=== PATIENT | male | born 1975 | race Caucasian/White ===

== ENCOUNTER 2020-12-10 08:15 | Outpatient (CLI) | payer OTHER, SELFPAY ==
--- NOTE | ~2020-12-10 | XR_ITS ---
EXAMINATION: XR barium swallow modified EXAM DATE: 12/10/2020 08:55 INDICATION: Dysphagia. TECHNIQUE: Modified barium esophagram was performed by myself to administered fluoroscopy, in conjun ction with speech pathologist who administered barium in varying consistencies as per speech patholog ist documentation. This was recorded on tape. The DAP for this procedure was 1.3 Gycm2. FINDINGS: Oral stage: Adequate function. Pharyngeal phase: Adequate function. Laryngeal penetration: None. Aspiration: None. Laryngeal sensitivity: Present. IMPRESSION: Normal modified esophagram exam. Please refer to speech pathologist findings and specifi c feeding recommendations. Reviewed, dictated and finalized at location A. NG OVEN TENDER IMPRESSION: Normal modified esophagram exam. Please refer to speech pathologis t findings and specific feeding recommendations.
--- NOTE | 2020-12-10 14:18 | STOPEVAL ---
MODIFIED BARIUM SWALLOW EVALUATION: Thank you for referring Roldan Villanueva to [facility].? Attending Provider: MD GLORIA Jensen Outpatient Evaluation ([facility]) Start: 12/10/20 14:08 Freq: Status: Active Protocol: Document 12/10/20 08:30 BECHERERT (Rec: 12/10/20 14:18 BECHERERT [email or web address]) Therapy Assessment Status Assessment Status Assessment Status Evaluation Outpatient Past Medical History Past Medical History Source of Past Medical History Patient Neurological History Hx Neurological Disorders No Significant History Cardiovascular History Hx Cardiac Disorders No Significant History Respiratory History Hx Bronchitis Yes: 2018 Gastrointestinal History Hx Other Gastrointestinal Disorders Yes: recently put on omeprazole Prior Level of Function Prior Swallow Level Prior Intake Method Oral Prior Diet Regular (Level 7 Diet) Prior Liquid Consistency Thin (Level 0 Diet) Pain Assessment Timing of Pain Assessment Timing of Pain Assessment Assessment Self Report Self Report Pain Level 0 Pain Score Pain Score 0: Self Report Modified Barium Swallow Evaluation Recent Swallowing History Reports Dysphagia Yes: feels like food is getting clogged in my throat Onset of Dysphagia 2008 but is worsening now History of Dysphagia No Other Factors Impacting Dysphagia None History of Pneumonia No Reported Difficult Consistencies Solids Intake Method Prior to Swallow Oral Evaluation Diet Prior to Swallow Evaluation Regular, Level 7 Liquid Consistency Prior to Swallow Thin (0) Evaluation Consistency Solid Consistency Method of Presentation Spoon Oral Preparatory Symptoms None Oral Phase Symptoms None Pharyngeal Phase Symptoms None Severity of Vallecular Residue None - 0% No Residue Severity of Pyriform Sinus Residue None - 0% No Residue 8 Point Laryngeal Penetration-Aspiration Material Does Not Enter Airway Scale Cervical/Esophageal Symptoms None Mixed Consistency Method of Presentation Spoon Oral Preparatory Symptoms None Oral Phase Symptoms None Pharyngeal Phase Symptoms None Severity of Vallecular Residue None - 0% No Residue Severity of Pyriform Sinus Residue None - 0% No Residue 8 Point Laryngeal Penetration-Aspiration Material Does Not Enter Airway Scale Cervical/Esophageal Symptoms None Pureed Consistency Method of Presentation Spoon Oral Preparatory Symptoms None Oral Phase Symptoms None Pharyngeal Phase Symptoms None Severity of Vallecular Residue None - 0% No Residue Severity of Pyriform Sin
== END 2020-12-10 08:16 | disposition home or self-care (01) ==
PROVIDERS: PCP Family Medicine; Visit Provider Otolaryngology
DX: R13.10 Dysphagia, unspecified (principal)
CPT/HCPCS: 92611

== ENCOUNTER → 2021-01-05 09:38 | Outpatient (CLI) | payer OTHER, SELFPAY ==
--- NOTE | ~2021-01-05 | CT_ITS ---
EXAMINATION: CT chest high resolution wo mi DATE: 01/05/2021 10:26 INDICATION: Solitary pulmonary nodule TECHNIQUE: Computed tomography (CT) of the chest was performed without intravenous contrast. The dose -length product (DLP) was 358.93 mGy-cm. Automated exposure control and iterative reconstruction tech nique were employed. COMPARISON: Outside hospital CT dated 12/01/2019 FINDINGS: There are multiple small nodules of the right lung. The largest measures 4 mm in the right middle lobe on image 72. There is a 3 mm nodule of the lingula. The lungs are free of acute opacities . There is no pleural effusion or pneumothorax. No pathologically enlarged thoracic lymph nodes are i dentified. The heart size is normal. There is mild thoracic spondylosis. IMPRESSION: 1. Multiple small lung nodules measuring up to 4 mm which likely reflect old granulomatous disease. I f the patient has no risk factors for malignancy, no further follow up is required. If there are ris k factors for malignancy (i.e., history of smoking, asbestos or radiation exposure), consider followu p CT in 12 months. Reviewed, dictated and finalized at location A. R AUTOMATIC STOKER IMPRESSION: 1. Multiple small lung nodules measuring up to 4 mm which likely reflect old gr anulomatous disease. If the patient has no risk factors for malignancy, no furt her follow up is required. If there are risk factors for malignancy (i.e., his tory of smoking, asbestos or radiation exposure), consider followup CT in 12 mo nths.
== END ==
PROVIDERS: PCP Family Medicine; Visit Provider Family Medicine
DX: R91.1 Solitary pulmonary nodule (principal)
CPT/HCPCS: 71250

== ENCOUNTER 2021-10-26 01:56 | Day surgery (SDC) | payer OTHER, SELFPAY ==
[2021-10-21 12:22] VITALS: BMI 30.5
--- NOTE | 2021-10-21 12:34 | PC.NURSE ---
Report to the Outpatient Waiting Room, entrance under the green pavilion located off [facility], at time 0700 on date 10/26/21. OR Time: 0900. - You and your visitor will be asked a series of questions to screen for COVID 19 for your protection. - A mask is required within the hospital. - Only one visitor is allowed at this time. Patient visitors will be guided where to wait when not with patient. Preoperative COVID Testing Requirements: No COVID Test needed if: (proof is required; if not received patient will have Rapid Test prior to entry) - Patient has received COVID Vaccine at least 14 days prior to procedure date or - Patient has positive COVID test result within last 90 days of surgery date. COVID Test needed if above criteria is not met If not COVID vaccinated a COVID test must be conducted within 72 hours of surgery and patient is asked to isolate self from time of testing until procedure. You will go to the [facility] for your COVID testing. The [facility] is located at the corner of [address] [facility]. You will only be called if COVID results are positive and your surgeon may reschedule your elective surgery date. Patients may have clear liquids (water, carbonated beverages, clear teas, apple juice) until 3 hours prior to surgery with a maximum of 20 ounces. - No food from midnight until time of surgery - Infants may have breast milk until 4 hours before surgery, formula 6 hours prior to surgery. - Children will be allowed to drink immediately following surgery. If applicable, please bring a bottle or sippy cup to assist with drinking. Juice, water, soda, and popsicles are readily available. For infants on formula, please bring formula the day of surgery. Pacifiers are allowed. Take the following medications with a SIP of water the morning of surgery: NONE Medications to discontinue per physician: VITAMINS/SUPPLEMENTS Date to take last dose: 10/22/21 Please no make-up, nail georgian, hairspray, perfume, deodorant, or body powder the day of surgery. No jewelry (including any body piercings) or valuables the day of surgery, leave them at home. Please take a shower or bath the night before, or the morning of, surgery with an antibacterial soap. Wear comfortable, loose fitting clothing. Children are encouraged to wear pajamas. HIBICLENS SHOWER - Jewelry must be removed prior to entering the operating room. Rings and piercings that are not removed may be cut off. - The hospital will not accept responsibility for valuables. - Please leave all valuables, including medications, at home the day of surgery. If you are going home after surgery, a licensed compactor driver must drive you home. - NO public transportation without another adult. - We recommend that an adult stay with you for 24 hours following discharge. - We also recommend that you do not drive, make important decision, drink alcoholic beverages, or take any drugs that were not prescribed by your health care provider for at least 24 hours after your discharge time. For Pediatric surgeries, we recommend two adults accompany the child home (only one inside the building at this time). Follow any additional instructions given to you from your surgeon. Telephone instructions given to MONICA LEBLANC and asked if any additional questions and then verbalized understanding. Patient advised to call surgeon office or pre surgery nurse liaison [phone] if any additional questions.
[2021-10-26] VITALS (8 sets, daily range): BP systolic 106–141; BP diastolic 52–83; PULSE 52–67; RESP 14–20; TEMP 36; O2SAT 98–100
[2021-10-26] MEDS: ACETAMINOPHEN 500 MG TABLET 1000 MG PO (07:24)
[2021-10-26] MEDS: KETOROLAC 15 MG/ML VIAL (*BKC) IV PUSH (07:53)
[2021-10-26] MEDS: LACTATED RINGERS 1,000 ML 30 ML IV CONT ×2 (07:59→09:40)
--- NOTE | 2021-10-26 08:12 | WPDANESEPPF ---
Anes - Initial Pre Proc Eval Procedure: Operation Date: 10/26/21 09:00 Proposed Procedures p Open Umbilical Hernia Repair with Possible Mesh - Myles Nelson DO Date/Time: 10/26/21 08:12 Surgeon: Myles Nelson DO Pre Op Diagnosis: umbilical hernia Patient Data Age: 45 Gender: M Height: 1.75 m Weight: 92.3 kg Allergies Allergy/AdvReac Type Severity Reaction Status Date / Time No Known Allergies Allergy Verified 10/26/21 07:20 Home Medications Medication Instructions Recorded Confirmed Type famotidine 20 mg tablet 20 mg PO DAILY 10/19/21 10/26/21 History diphenhydramine HCl [Benadryl] 25 mg PO HS PRN 10/21/21 10/26/21 History multivitamin 1 tablet PO DAILY 10/21/21 10/26/21 History Patient hx anesthesia problems: none Family hx anesthesia problems: none Results Review: All pre-operative results and documents have been reviewed as part of the pre-operative evaluation. 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 Gender identity (if verbalized by the patient): Male Sexual Orientation (if Verbalized by the Patient): Straight or Heterosexual Spiritual care concerns: No Anes - Eval Final PreProcedure Day of Procedure 10/26/21 08:12 Patient weight: overweight Heart: regular rate and rhythm Lungs: clear to auscultation Airway: Mallampati scale class II Neurological: alert and oriented Last oral intake: >/= 8 hours ASA classification: III Emergent: no Anesthetic plan: proceed Anesthesia type and monitoring: general ETT and standard monitoring Results Review: All pre-operative results and documents have been reviewed as part of the pre-operative evaluation. Informed Consent: The patient's anesthetic plan and its attendant risks and benefits were discussed with the patient/family/POA. Questions were solicited and answers provided to the satisfaction of the patient/family/POA.
--- NOTE | 2021-10-26 08:34 | WPDHPUPDATE1 ---
History and Physical Update Update Date/Time: 10/26/21 08:34 History and Physical has been reviewed, including an updated exam of the patient. There are NO changes in the patient's condition. Risks, benefits, and alternatives have been discussed and questions answered. Patient agrees to proceed with procedure.
[2021-10-26] MEDS: ceFAZolin 2 GM/D5W 50 ML 2 GM/50 ML BAG IVPB (08:49)
--- NOTE | 2021-10-26 09:40 | P.OP_ITS ---
Procedure Note - Detailed Date of Procedure 10/26/21 Pre-op Diagnosis umbilical hernia Post-op Diagnosis same Procedure Performed Open umbilicall hernia repair with 4.[address] ventral patch Surgeon Myles Nelson, DO Anesthesia general and local (0.5% bupivacaine with epinephrine) Indications This is a 45-year-old man who presented with an umbilical bulge with pain with activity. He had noticed this over the past couple months. He does a lot of heavy lifting with work and has noticed increased pain with activity. He was found to have a small reducible umbilical hernia on exam. Discussions were made with the patient about treatment options and decision was made to proceed with umbilical hernia repair with possible mesh. Findings Umbilical hernia repair was performed. Patient was found to have a less than 1 cm umbilical hernia containing some preperitoneal fat. A 4.[address] ventral patch was placed just under the hernia defect and the mesh was secured in place using 0 Ethibond notgjm-me-zuyyc sutures along with the fascial closure. No specimens were obtained for pathology. Description of Procedure Procedure as well as risks, benefits, and alternatives were discussed with the patient. Written consent was obtained and placed in chart prior to procedure. Patient was brought back to surgical suite. He was placed supine on operating table. He was then intubated by Anesthesia Department. His abdomen was prepped and draped in sterile fashion using chlorhexidine prep. 0.5% bupivacaine with epinephrine was infiltrated locally around the operative area. A 3 cm curvi linear incision was made just inferior to the umbilicus using a 15 blade scalpel. Electrocautery was used for hemostasis and for dissection down through the subcutaneous fat. Hernia sac was encountered and this was carefully freed up from surrounding subcutaneous fat using electrocautery. The hernia sac was freed up all the way down to the level of the fascia, and then it was transected using electrocautery. The hernia sac was excised and discarded. The umbilical stalk was then lifted off of the fascia with electrocautery. The hernia defect was then measured. This was measuring approximately 6-7 mm. The decision was made to use a 4.[address] ventral patch. The peritoneum was cleared under the fascia circumferentially around the hernia using blunt dissection and electrocautery. Once a wide enough pocket was created for the mesh, the mesh was then placed within this preperitoneal pocket and laid out flat centered on the hernia defect. The mesh appeared to be sitting in proper position. The mesh was secured at the inferior and superior edges using 3-0 Vicryl U-stitches. The fascia was then closed over the mesh and the mesh was incorporated into the fascial closure using 0 Ethibond flotrf-ac-rpeoo sutures. The repair was inspected and appeared secure. 0.5% bupivacaine with epinephrine was infiltrated around the fascia and subcutaneous space. The umbilical stalk was then reapproximated to the fascia using a 3 0 Vicryl simple interrupted suture. The deep dermis was reapproximated using 3 0 Vicryl simple interrupted sutures, and then the skin was approximated using 4 Monocryl running subcuticular suture. Exofin glue was then applied on top. The patient was then awakened from anesthesia, extubated, and transferred to recovery. Implants 4.[address] ventral patch Estimated Blood Loss 5 Pathology none sent Complications No immediate complications Condition stable Disposition same day
[2021-10-26] MEDS: fentaNYL CITRATE INJ (*CRX) 100 MCG/2 ML VIAL 25 MCG IV PUSH ×4 (10:16→10:29)
== END 2021-10-26 11:49 | disposition home or self-care (01) ==
PROVIDERS: PCP Family Medicine; Visit Provider Surgery
PROC: (CPT 49585; principal; 2021-10-26 09:00)
DX: K42.9 Umbilical hernia without obstruction or gangrene (principal); K21.9 Gastro-esophageal reflux disease without esophagitis; G47.33 Obstructive sleep apnea (adult) (pediatric)
CPT/HCPCS: 49585; A9270; J0690; J1100; J1885; J2250; J2405; J2704; J3010; J7120

== ENCOUNTER 2023-06-12 12:59 | Outpatient (CLI) | payer BC, SELFPAY ==
--- NOTE | ~2023-06-12 | US_ITS ---
EXAMINATION: US soft tissue groin LT DATE: 06/12/2023 13:50 INDICATION: Left groin discomfort and scrotal swelling TECHNIQUE: Multiple grayscale and Doppler ultrasound images of the left groin were obtained. COMPARISON: None FINDINGS: Transient small fat-containing left inguinal hernia which occurs with Valsalva with the region of her niated fat measuring 2.4 x 1.1 cm. There are normal-sized left inguinal lymph nodes. IMPRESSION: 1. Transient small fat-containing left inguinal hernia occurring with Valsalva. Reviewed, dictated and finalized at location A.
--- NOTE | ~2023-06-12 | CT_ITS ---
EXAMINATION: CT diagnostic chest wo con DATE: 06/12/2023 13:20 INDICATION: Follow-up pulmonary nodule TECHNIQUE: Computed tomography (CT) of the chest was performed without intravenous contrast. The dose -length product was 169.67 mGy-cm. Automated exposure control and iterative reconstruction technique were employed. COMPARISON: None FINDINGS: Stable enlarged mediastinal lymph node at the precarinal location measuringr 11 mm, likely reactive. No significant vascular abnormality. Heart size normal. No pleural or pericardial effusion. Stable 4 mm right middle lobe nodule, image 72. Stable 3 mm lingular nodule. No new pulmonary nodule s or masses. No focal airspace consolidation. No endobronchial lesions. Mild thoracic spondylosis. IMPRESSION: 1. Stable likely benign bilateral pulmonary nodules. Consider follow-up low dose CT chest in 12 month s. Reviewed, dictated and finalized at location A. IMPRESSION: 1. Stable likely benign bilateral pulmonary nodules. Consider follow-up low dos e CT chest in 12 months.
== END 2023-06-12 13:00 | disposition home or self-care (01) ==
PROVIDERS: PCP Family Medicine; Visit Provider Physician Assistant
DX: R10.32 Left lower quadrant pain (principal); R91.8 Other nonspecific abnormal finding of lung field; N50.89 Other specified disorders of the male genital organs; Z77.090 Contact with and (suspected) exposure to asbestos; K40.90 Unilateral inguinal hernia, without obstruction or gangrene, not specified as recurrent
CPT/HCPCS: 71250; 76882

== ENCOUNTER 2023-08-24 16:10 | Outpatient (CLI) | payer BC, SELFPAY | END 2023-08-24 16:11 | disposition home or self-care (01) | LOC: ANHLAB 16:12 | PROVIDERS: PCP Family Medicine; Visit Provider Surgery | DX: Z01.812 Encounter for preprocedural laboratory examination (principal); K40.90 Unilateral inguinal hernia, without obstruction or gangrene, not specified as recurrent | CPT/HCPCS: 36415; 86850; 86900; 86901 ==

== ENCOUNTER 2023-09-05 00:57 | Day surgery (SDC) | payer BC, SELFPAY ==
--- NOTE | 2023-08-22 17:04 | PC.NURSE ---
Report to the Outpatient Waiting Room, entrance under the green pavilion located off [facility], at time 1030 on date 09/05/23. Planned Procedure Time: 1230. Time changes happen often and if your time is changed the preop area will call you the afternoon before. - You and your visitor will be asked to self-screen and do not enter if you have any COVID symptoms. - A mask is optional within the hospital at this time. Patients may have clear liquids (water, carbonated beverages, clear teas, apple juice) until 3 hours prior to surgery with a maximum of 20 ounces. 0930 - No food from midnight until time of surgery - Infants may have breast milk until 4 hours before surgery, formula 6 hours prior to surgery. - Children will be allowed to drink immediately following surgery. If applicable, please bring a bottle or sippy cup to assist with drinking. Juice, water, soda, and popsicles are readily available. For infants on formula, please bring formula the day of surgery. Pacifiers are allowed. Take the following medications with a SIP of water the morning of surgery: None DO NOT STOP ANY OF YOUR OTHER PRESCRIPTION MEDICATIONS PRIOR TO SURGERY ?EXCEPT THE FOLLOWING Medications to discontinue per physician Timothyixgama famotidine Date to take last dose 09/04/23 Please no make-up, nail mohawk, hairspray, perfume, deodorant, or body powder the day of surgery. No jewelry (including any body piercings) or valuables the day of surgery, leave them at home. Please take a shower or bath the night before, or the morning of, surgery with an antibacterial soap. Hibiclens Wear comfortable, loose fitting clothing. Children are encouraged to wear pajamas. - Jewelry must be removed prior to entering the operating room. Rings and piercings that are not removed may be cut off. - The hospital will not accept responsibility for valuables. - Please leave all valuables, including medications, at home the day of surgery. If you are going home after surgery, a licensed courtesy van driver must drive you home. - NO public transportation without another adult if you receive anesthesia. - We recommend that an adult stay with you for 24 hours following discharge. - We also recommend that you do not drive, make important decision, drink alcoholic beverages, or take any drugs that were not prescribed by your health care provider for at least 24 hours after your discharge time. For Pediatric surgeries, we recommend two adults accompany the child home. Follow any additional instructions given to you from your surgeon. If you or anyone in your household have experienced Covid symptoms in the past week, please notify your surgeon or the nurse liaison at the phone number below for possible testing. Telephone instructions given to Roldan Villanueva- Patient and asked if any additional questions and then verbalized understanding. Patient advised to call surgeon office or pre surgery nurse liaison [phone] if any additional questions.
[2023-08-22 17:14] VITALS: BMI 32.2
[2023-09-05] VITALS (9 sets, daily range): BP systolic 112–128; BP diastolic 61–82; PULSE 64–88; RESP 14–18; TEMP 36.6–36.7; O2SAT 98–100
[2023-09-05] MEDS: ACETAMINOPHEN 500 MG TABLET 1000 MG PO (10:24)
[2023-09-05] MEDS: LACTATED RINGERS 1,000 ML 30 ML IV CONT ×2 (10:45→15:03)
[2023-09-05] MEDS: KETOROLAC 15 MG/ML VIAL (*BKC) IV PUSH (12:49)
--- NOTE | 2023-09-05 12:53 | PM.IMHP ---
H&P: HPI History of Present Illness Date/Time: 09/05/23 12:53 Chief Complaint: Left inguinal hernia Narrative: This is a 47-year-old man who presents for left inguinal hernia repair. He reports no changes since last seen in the office. Review of Systems Review of Systems: All systems reviewed & are unremarkable except as noted in HPI and below Constitutional: Constitutional: Denies chills, Denies fever(s), Denies headache(s) and Denies weight loss Eyes: Eyes: Denies change in vision ENT: Denies dizziness, Denies headache(s), Denies neck mass and Denies throat swelling Cardiovascular: Cardiovascular: Denies chest pain, Denies lightheadedness and Denies dyspnea Respiratory: Respiratory: Denies cough, Denies dyspnea and Denies wheezing Gastrointestinal: Gastrointestinal: Denies abdominal pain, Denies change in bowel habits, Denies nausea and Denies vomiting Genitourinary: Genitourinary: Denies hematuria and Denies dysuria Musculoskeletal: Musculoskeletal: Reports as per HPI Integumentary/Breasts: Skin/Breast: Reports as per HPI Neurologic: Denies dizziness and Denies headache(s) Allergic/Immunologic: Allergic/Immunologic: Denies throat swelling and Denies wheezing PMFSH Past Medical History Medical History (Updated 07/05/23 @ 15:05 by Elena Ott) Adenomatous colon polyp Dysphagia Elevated cholesterol Eosinophilic esophagitis GERD (gastroesophageal reflux disease) Hypertension Lung nodule NIRALI (obstructive sleep apnea) Positive LUI (antinuclear antibody) Surgical History Surgical History (Updated 07/05/23 @ 15:13 by Elena Ott) H/O umbilical hernia repair 10/26/21 Magazine teeth extracted Family History Family History Father Hypertension Grandparent Carcinoma of colon Social History Social History Smoking status: Never smoker Second hand tobacco smoke exposure: Yes Alcohol intake: current Drinks per week: 2 Alcohol use details: socially Substance use: never Substance use type: does not use Living arrangements: with family Occupation/Education: occupation 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 Gender identity (if verbalized by the patient): Male Sexual Orientation (if Verbalized by the Patient): Straight or Heterosexual Spiritual care concerns: No Meds Home Medications and Allergies Home Medications Medication Instructions Recorded Confirmed Type dupilumab 300 mg/2 mL subcutaneous 300 mg (2 mL) subcut WEEKLY #8 mL 02/05/23 08/22/23 Rx pen injector ([employer]) famotidine 20 mg tablet 20 mg PO BID 08/22/23 09/05/23 History Allergies Allergy/AdvReac Type Severity Reaction Status Date / Time No Known Allergies Allergy Verified 09/05/23 10:21 Vital Signs Vital Signs - 24 hr 09/05/23 10:55 Temperature 36.6 C Pulse Rate 64 Respiratory Rate 16 Blood Pressure 112/78 Pulse Oximetry 98 Oxygen Delivery Room Air Exam Const: General: no acute distress and alert Orientation/consciousness: patient oriented x3 HENMT: Head: normocephalic and atraumatic Ears: hearing grossly normal bilaterally Face/Nose/Sinus: Normal nares present Mouth: Yes Normal oral and palatal mucosa present Eyes: Periorbital: periorbital findings normal Sclera: sclerae normal EOM: EOMs intact bilaterally Neck: Neck: normal visual inspection, no lymphadenopathy and trachea midline Chest: Chest palpation & inspection: normal inspection of the chest Resp: Effort & Inspection: normal respiratory effort Auscultation: clear to auscultation bilaterally Cardio: Jugular venous distension: no JVD Rate: regular rate Rhythm: regular rhythm Heart sounds: S1 normal heart sound present and S2 normal heart sound present Peripheral pulses: Peripheral pulses 2+ throughout GI: Inspection: normal to inspection GI Palp: Yes Soft to pal
--- NOTE | 2023-09-05 12:56 | WPDHPUPDATE1 ---
History and Physical Update Update Date/Time: 09/05/23 12:56 History and Physical has been reviewed, including an updated exam of the patient. There are NO changes in the patient's condition. Risks, benefits, and alternatives have been discussed and questions answered. Patient agrees to proceed with procedure.
[2023-09-05] MEDS: ceFAZolin 2 GM/D5W 50 ML 2 GM/50 ML BAG IVPB (13:27)
[2023-09-05] MEDS: BUPIVACAINE/EPINEPHRINE 0.5% 50 ML VIAL 30 ML INFILTRATE (13:58)
--- NOTE | 2023-09-05 14:25 | W.PM.PROC2 ---
Procedure Note - Detailed Date of Procedure 09/05/23 Pre-op Diagnosis Left Inguinal Hernia Post-op Diagnosis Same (small direct LIH) Procedure Performed Laparoscopic left inguinal hernia repair with mesh, da Derick assisted Surgeon Myles Nelson, DO Anesthesia General and Local (0.5% bupivacaine with epinephrine) Indications This is a 47-year-old man who began experiencing left groin pain about 6 months ago. He noticed this more with physical activity and exercise. He was sent for an ultrasound which showed evidence of a small fat containing left inguinal hernia. Discussions were made with the patient about treatment options and decision was made to proceed with robotic assisted laparoscopic left inguinal hernia repair with mesh. Findings Laparoscopic left inguinal hernia repair was performed. Upon initially inspecting the abdominal cavity there did not appear to be much of a left inguinal hernia. I then took down the peritoneum to create a preperitoneal flap and was able to identify a small direct inguinal hernia containing some preperitoneal fat. There did not appear to be evidence a right inguinal hernia. A robotic transabdominal preperitoneal approach was utilized for repair. A large left Bard 3DMax mid mesh was placed overlying the entire left myopectineal orifice. Description of Procedure Procedure as well as risks, benefits, and alternatives were discussed with the patient. Written consent was obtained and placed in chart prior to procedure. Patient was brought back to surgical suite. He was placed supine on operating table. Time-out was done to confirm patient and procedure. He was then intubated by Anesthesia Department. His abdomen was prepped and draped in sterile fashion using chlorhexidine prep. 0.5% bupivacaine with epinephrine was infiltrated at each location for incision. An 8 mm incision was made in the left lateral abdomen, and a 5 mm Optiview trocar was advanced through the abdominal layers under direct visualization. Once inside the abdominal cavity, carbon dioxide insufflation was used to create a pneumoperitoneum. A camera was inserted and the abdominal cavity was inspected. The patient was placed in slight Trendelenburg position. An 8 millimeter incision was made on the right lateral abdomen and an 8 millimeter trocar was inserted under direct visualization. Another 8 millimeter incision was made just superior to the umbilicus and an 8 millimeter trocar was inserted under direct visualization. The 5 mm port was then removed and this was replaced with another 8 mm robotic port. The robotic arms were brought up to the patient's bedside and secured to the ports. The camera and instruments were inserted. I then moved over to the robotic console and took control of the camera and instruments. After careful inspection of the abdominal cavity, I began scoring the peritoneum along the left lower quadrant using scissors with electrocautery. The preperitoneal plane was entered and this was carefully dissected caudally along the inferior epigastric vessels. Careful dissection with scissors with electrocautery and blunt dissection was used to continue this dissection. I dissected far enough laterally to allow for mesh placement, and also dissected medially to identify the pubic arch and Thien's ligament. The hernia sac was identified and carefully dissected posteriorly. The cord contents were also identified and the peritoneum was carefully dissected far enough posteriorly to allow for mesh placement. Once an adequate pocket was created, I then placed the mesh within the preperitoneal pocket and carefully unfolded it. The mesh was centered on the hernia defect with adequate overlap circumferentially. The inferior edge of the mesh was inspected to ensure that it was far enough away from the peritoneal edge. The mesh appeared in proper position overlying the entire myopectineal orifice. The mesh was secured using 3-0 Vicryl simpl
== END 2023-09-05 16:55 | disposition home or self-care (01) ==
PROVIDERS: PCP Family Medicine; Visit Provider Surgery
PROC: 8E0Y4CZ Robotic Assisted Procedure of Lower Extremity, Percutaneous Endoscopic Approach (ICD-10-PCS; CPT 49650; principal; 2023-09-05 12:30)
DX: K40.90 Unilateral inguinal hernia, without obstruction or gangrene, not specified as recurrent (principal); K21.9 Gastro-esophageal reflux disease without esophagitis; G47.33 Obstructive sleep apnea (adult) (pediatric)
CPT/HCPCS: 49650; S2900; A9270; C1781; J0690; J1885; J2250; J2405; J2704; J3010; J7120

== ENCOUNTER 2024-06-23 16:59 | Outpatient (CLI) | payer BC, SELFPAY ==
--- NOTE | ~2024-06-23 | CT_ITS ---
CT Scan of the Chest without Contrast: Clinical Indication: Pulmonary nodules Technique: Contiguous sections were acquired throughout the chest without intravenous contrast. Dose reduction technique was used on this scan by utilizing automated exposure control and iterative recon struction technique. The dose-length product (DLP) was 200.41 mGy-cm. COMPARISON: 06/12/2023 Findings: There is no evidence of any significant mediastinal, hilar or axillary lymphadenopathy. The mediastin al soft tissues appear normal. There is no evidence of pleural or pericardial effusion. 3 mm right middle lobe pulmonary nodule noted (axial image 64). 3 mm right lower lobe pulmonary nodul e present (axial image 83). 3 mm left lower lobe pulmonary nodule present (axial images 93, 98). Thes e nodules are all stable from prior exam. Images through the upper abdomen reveal no abnormalities. Impression: Stable tiny pulmonary nodules, as detailed above. Reviewed, dictated and finalized at [facility]. Impression: Stable tiny pulmonary nodules, as detailed above.
== END 2024-06-23 17:00 | disposition home or self-care (01) ==
LOC: ANHIMG 16:59
PROVIDERS: PCP Family Medicine; Visit Provider Physician Assistant
DX: R91.8 Other nonspecific abnormal finding of lung field (principal); Z77.090 Contact with and (suspected) exposure to asbestos
CPT/HCPCS: 71250

== ENCOUNTER 2024-09-18 10:20 | Emergency (ER) | payer BC, SELFPAY ==
[2024-09-18 10:40] VITALS: BP 134/89; PULSE 80; RESP 16; TEMP 37.1; O2SAT 98
--- NOTE | 2024-09-18 10:51 | ED.URI ---
HPI - URI/Sore Throat General Chief Complaint: Upper Respiratory Infection Stated Complaint: Chest Congestion Time Seen by Provider: 09/18/24 10:51 Source: patient, RN notes reviewed and old records reviewed Mode of arrival: ambulatory Limitations: no limitations History of Present Illness HPI Narrative: 48-year-old male to Express Care with complaint of cough, headache, fatigue, decreased sleep for 1 week. Patient reports that 1 of his children was recently treated for pneumonia and his and other child currently battling similar symptoms. Patient has attempted to treat at home with [id number] medications. Patient took negative COVID and flu test at home. Patient denies shortness of breath, chest pain, difficulty swallowing, allergies, pertinent medical history. Patient resting in exam room in no acute distress. Appears tired, acutely ill. Related Data Home Medications Medication Instructions Recorded Confirmed testosterone cypionate 200 mg/mL 200 mg IM ONCE 05/05/24 09/18/24 intramuscular oil (Depo-Testosterone) Allergies Allergy/AdvReac Type Severity Reaction Status Date / Time No Known Allergies Allergy Verified 09/18/24 10:41 Review of Systems Review of Systems: All systems reviewed & are unremarkable except as noted in HPI and below Constitutional: Constitutional: Reports as per HPI, Reports difficulty sleeping, Reports fatigue, Reports fever(s) and Reports headache(s) Eyes: Eyes: Reports no additional eye complaints ENT: Reports system reviewed and no additional complaints, except as documented Cardiovascular: Cardiovascular: Reports no additional cardiovascular complaints, Denies chest pain and Denies dyspnea Respiratory: Respiratory: Reports no additional respiratory complaints, Reports cough and Denies dyspnea Musculoskeletal: Musculoskeletal: Reports no additional musculoskeletal complaints Neurologic: Reports system reviewed and no additional complaints, except as documented Psychiatric: Psychiatric: Reports no additional psychiatric complaints [facility] Past Medical History Medical History Adenomatous colon polyp Dysphagia Elevated cholesterol Eosinophilic esophagitis GERD (gastroesophageal reflux disease) Hypertension Lung nodule NIRALI (obstructive sleep apnea) Positive LUI (antinuclear antibody) Surgical History Surgical History H/O umbilical hernia repair 10/26/21 [place] teeth extracted Family History Family History Father Hypertension Grandparent Carcinoma of colon Mother No problems noted. Sibling No problems noted. Social History Social History Smoking status: Never smoker Second hand tobacco smoke exposure: Yes Alcohol intake: current Drinks per week: 2 Alcohol use details: socially Substance use: never Substance use type: does not use Do You Feel Safe in your Home?: Yes Lack of Transportation: No Lack of Food: Never True Current Housing: I Have Housing Concerned About Future Housing: No Difficulty Paying Gas/Electric Bills: No Difficulty Paying for Meds: No Currently Unemployed: No Education: High School Diploma/GED Difficulty w/ Childcare or Family Care: No Living arrangements: with family Occupation/Education: occupation 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 There is no relevant family history pertinent to the patient complaint. Exam Const: General: cooperative, no acute distress, well developed, alert, ill appearing acutely, tired appearing, uncomfortable, well groomed and well nourished Nutritional Appearance: well nourished Orientation/consciousness: patient oriented x3 Limitations: no limitations HENMT: Head: normal to inspection Ears: external ears normal Face/Nose/Sinus: Normal external nose present, Normal nares present, normal facial exam, No erythema and No edema Face and sinus: normal facial exam, no erythema and no edema Mouth: Yes Normal oral and palatal mucosa present Eyes: General: appearance normal, both eyes and all related structures Neck: Neck: normal visual inspection, full ROM and no meningeal signs Lymphatic: no lymphadenopathy noted and no lymphedema noted Chest: Chest palpation & inspection: normal inspection of the chest Resp: Effort & Inspection: normal respiratory effort and able to speak in complete sentences Auscultation: diminished lung sounds on the right in the lower lung garrett Cardio: Jugular venous distension: no JVD Rate: regular rate Rhythm: regular rhythm Back/Spine/Pelvis: Cervical Spine: cervical ROM normal Skin: General skin exam: normal color, no rashes or lesions noted and turgor normal Neuro: General: patient oriented x3, gait normal, moves all extremities and no meningeal signs Speech: normal speech Gait exam (Neuro): Normal gait present Extrem: General: normal to inspection, full ROM and capillary refill normal Psych: Appearance: grossly normal and well kempt Course Course Emergency Course: Some parts of this dictation were generated by voice recognition software and may contain typographical and/or grammatical inaccuracies. Level of Care: Express Care Visit Vital Signs Vital signs: Vital Signs Temperature 37.1 C 09/18/24 10:40 Pulse Rate 80 09/18/24 10:40 Respiratory Rate 16 09/18/24 10:40 Blood Pressure 134/89 09/18/24 10:40 Pulse Oximetry 98 09/18/24 10:40 Temperature 37.1 C 09/18/24 10:40 Pulse Rate 80 09/18/24 10:40 Respiratory Rate 16 09/18/24 10:40 Blood Pressure 134/89 09/18/24 10:40 Pulse Oximetry 98 09/18/24 10:40 reviewed MDM - URI/Sore Throat MDM Narrative Medical decision making narrative: 48-year-old male to Express Care with complaint of cough, headache, fatigue, decreased sleep for 1 week. Patient reports that 1 of his children was recently treated for pneumonia and his and other child currently battling similar symptoms. Patient has attempted to treat at home with cjuk-ssc-ytieqmi medications. Patient took negative COVID and flu test at home. Patient denies shortness of breath, chest pain, difficulty swallowing, allergies, pertinent medical history. Patient resting in exam room in no acute distress. Appears tired, acutely ill. On exam, auscultation right lower sounds diminished. Discussed x-ray and exam findings with patient. Patient elected treatment without imaging. Patient is sitting uncomfortably in exam room nontoxic in appearance. Patient appropriate for outpatient treatment and follow-up. Discharge instructions reviewed with patient, as well as provided in writing per nursing staff. The instructions also include specific and strict return/GO TO THE ER as well as f/u information. All questions have been answered, and the patient deny any further questions with discharge and discharge plan. Some parts of this dictation were generated by voice recognition software and may contain typographical and/or grammatical inaccuracies. Differential Diagnosis Differential diagnosis: Likely upper respiratory infection, croup, otitis media, sinusitis, viral infection, bronchitis, influenza and pharyngitis Discharge Plan Discharge Clinical Impression: Pneumonia involving right lung Patient Disposition: Home, Self-Care Condition: Stable Instructions: Pneumonia (ED) Additional Instructions: -Alternate Tylenol and Motrin per package directions for fever or pain. -Antihistamine medication such as Benadryl at night and Zyrtec/Claritin/Faviola during the day can help improve symptoms. -Use Flonase twice a day for 5 days then daily to help reduce the inflammation and dry up your sinuses. -You can also use Sudafed or Mucinex. Be sure to drink plenty of water with these medications at least 8 ounces with every dose and it is important to drink 8 to 10 glasses of water per day. Water is a natural decongestant -Eat and drink things that are easy to swallow, like tea or soup, or popsicles. -Oral rinses such as: Salt water gargles and/or may use topical anesthetic (eg. Chloraseptic spray) or lozenges to relieve dryness or throat pain). -Frequent hand washing or hand java systems analyst is one of the best ways to prevent spread of infection. -Using a vaporizer or humidifier at night will also help thin secretions and help with coughing up phlegm. -Follow up with primary care provider in 2-3 days if condition is not improving; or seek ER visit if you have trouble breathing, cannot drink enough fluids, have muffled voice, difficulty opening your mouth, or severe swelling. Prescriptions: New azithromycin 250 mg tablet 250 mg PO DAILY Qty: 6 0RF Rx Instructions: 250 mg orally. Take TWO tablets today, then one tablet daily for 4 days. methylprednisolone [Methylpred DP] 4 mg tablets,dose pack See Rx Instructions .ROUTE .COMPLEX Qty: 21 0RF Rx Instructions: for 6 days No Action Dupixent Pen 300 mg/2 mL pen injector 300 mg subcut WEEKLY Qty: 8 11RF testosterone cypionate [Depo-Testosterone] 200 mg/mL oil 200 mg IM ONCE Rx Instructions: as a single dose omeprazole 40 mg capsule,delayed release(DR/EC) 40 mg PO DAILY Qty: 30 5RF diclofenac sodium 75 mg tablet,delayed release (DR/EC) 75 mg PO BID Qty: 60 1RF Follow-up/Referrals: Bill aYng MD [Primary Care Provider] - Stand Alone Forms: Work/School Release IP
== END 2024-09-18 11:10 | disposition home or self-care (01) ==
PROVIDERS: Emergency Provider Nurse Practitioner Family; PCP Family Medicine
DX: J18.9 Pneumonia, unspecified organism (principal); E78.00 Pure hypercholesterolemia, unspecified; K20.0 Eosinophilic esophagitis; K21.9 Gastro-esophageal reflux disease without esophagitis; I10 Essential (primary) hypertension
CPT/HCPCS: 99213; G0463

== ENCOUNTER 2025-07-06 15:54 | Outpatient (CLI) | payer OTHER, SELFPAY ==
--- NOTE | ~2025-07-06 | CT_ITS ---
CT Scan of the Chest without Contrast: Clinical Indication: Abnormal nonspecific finding of lung field Technique: Contiguous sections were acquired throughout the chest without intravenous contrast. Dose reduction technique was used on this scan by utilizing automated exposure control and iterative reconstruction technique. The dose-length product (DLP) was 425.09 mGy-cm. COMPARISON: 06/23/2024 Findings: There is no evidence of any significant mediastinal, hilar or axillary lymphadenopathy. The mediastinal soft tissues appear normal. There is no evidence of pleural or pericardial effusion. 3 mm nodule noted in the left upper lobe (axial image 68). 4 mm right middle lobe nodule present (axial image 69). 3 mm right lower lobe nodule present (axial image 87). 3 mm left lower lobe nodules are also present (axial image 96, 101). Images through the upper abdomen reveal no abnormalities. Impression: Stable subcentimeter pulmonary nodules, as detailed above. Reviewed, dictated and finalized at [facility]. Impression: Stable subcentimeter pulmonary nodules, as detailed above.
== END 2025-07-06 15:55 | disposition home or self-care (01) ==
LOC: MICIMG 15:55
PROVIDERS: PCP Family Medicine; Visit Provider Physician Assistant Medical
DX: R91.8 Other nonspecific abnormal finding of lung field (principal); Z77.090 Contact with and (suspected) exposure to asbestos
CPT/HCPCS: 71250